=== PATIENT | male | born 1980 | race Caucasian/White ===

== ENCOUNTER 2016-12-12 14:12 | Emergency (ER) | payer OTHER ==
[~2016-12-12] VITALS: Ht 165.1 cm; Wt 117.5 kg
[2016-12-12 16:08] VITALS: BP 134/71
== END 2016-12-12 16:08 | disposition home or self-care (01) ==
LOC: ED 14:12
DX: S16.1XXA Strain of muscle, fascia and tendon at neck level, initial encounter (principal); S29.012A Strain of muscle and tendon of back wall of thorax, initial encounter; S39.012A Strain of muscle, fascia and tendon of lower back, initial encounter; V89.2XXA Person injured in unspecified motor-vehicle accident, traffic, initial encounter; Y93.89 Activity, other specified; Y99.8 Other external cause status; Y92.89 Other specified places as the place of occurrence of the external cause

== ENCOUNTER 2020-01-22 00:27 | Emergency (ER) | payer MEDICAID ==
[~2020-01-22] VITALS: Ht 170.2 cm; Wt 117.9 kg
[2020-01-22 00:55] VITALS: Ht 170.2 cm; Wt 117.9 kg
[2020-01-22 00:57] LABS: BASOPHIL % 2.7 % (0-2); PLATELET COUNT 372 x10^3mcL (130-400); RED CELL DISTRIBUTION WIDTH 11.9 % (11.5-14.5)
[2020-01-22 01:05] LABS: CARBON DIOXIDE 29.4 mmol/L (21-32); CREATININE SERUM 1.4 mg/dL (0.7-1.3); POTASSIUM SERUM 3.9 mmol/L (3.5-5.1)
[2020-01-22 01:09] LABS: ALBUMIN 4.1 g/dL (3.4-5.0); BILIRUBIN TOTAL 0.49 mg/dL (0.20-1.00); TOTAL PROTEIN, SERUM 8.2 g/dL (6.4-8.2)
[2020-01-22 02:29] VITALS: BP 130/74
== END 2020-01-22 02:29 | disposition home or self-care (01) ==
LOC: ED 00:27
PROVIDERS: Emergency Medicine
DX: K29.00 Acute gastritis without bleeding (principal)
CPT/HCPCS: J2405; J7030